=== PATIENT | male | born 1940 | race Caucasian/White ===

== ENCOUNTER 2017-01-06 15:43 | Inpatient (IN) | payer OTHER ==
[~2017-01-06] VITALS: Ht 177.8 cm; Wt 82.2 kg
[~2017-01-06 15:43] MED LIST: ADULT LOW DOSE81 M1 PO; ADVAIR 100/501 DISK IH; AMBIEN5 MG PO; Ambien PO; CITALOPRAM HBR40 MG PO; CRESTOR40 MG PO; CYTOMEL25 MCG PO; DEXILANT60 MG PO; EFFEXOR XR150 MG PO; ENDOCET 5-3251 EACH PO; FLOMAX0.4 MG PO; Flexeril PO; INCRUSE ELLI62.5 MCG IH; NIACIN250 M1 PO; NIFEDICAL XL60 MG PO; NITROQUICK0.4 MG SL; NITROSTAT0.4 MG SL; PINDOLOL5 MG PO; PREVACID30 MG PO; Procardia XL,Adalat PO; Proventil,Ventolin H IH; SPIRIVA1 INHALATI IH; SYMBICORT60 INHALAT IH; VALIUM5 MG PO; VENTOLIN HFA18 GM IH; ZANTAC300 MG PO; ZANTAC75 M1 PO; [UNRECOGNIZED DRUG - OTHER] PO
[2017-01-06 16:18] LABS: HEMATOCRIT 47.2 % (38.0-50.0); MCH 31.1 PG (29.0-34.0); MCHC 34.7 G/DL (30.0-36.0); MCV 89.4 FL (86-99); PLATELET COUNT 161 K/uL (156-360); RBC DIS.WIDTH-SD 42.4 % (39-53); RED BLOOD COUNT 5.28 M/uL (4.00-5.50); WHITE BLOOD COUNT 9.4 K/uL (4.1-10.2)
[2017-01-06 16:27] LABS: CHLORIDE 100 mEq/L (99-109); SODIUM 136 mEq/L (136-147)
[2017-01-06 16:29] LABS: GLUCOSE 146 mg/dL (70-99)
[2017-01-06 16:30] LABS: ANION GAP 10 MEQ/L (2-14)
[2017-01-06 16:33] LABS: GFR ESTIMATE (CALCULATED) > 59 mL/min/; UREA NITROGEN (BUN) 15 mg/dL (9-23)
[2017-01-06] MEDS ORDERED: VALIUM5 MG PO (16:33)
[2017-01-06 16:39] LABS: TROP-I INTERPRETATION NEGATIVE; TROPONIN-I < 0.01 ng/mL (0.0-0.30)
[2017-01-06] MEDS ORDERED: LO-DOSE ASPIRIN81 M2 PO (17:19)
[2017-01-06] MEDS ORDERED: FUROSEMIDE40 MG PO (17:22)
[2017-01-06] MEDS ORDERED: PROAIR HFA8.5 GM IH (17:22)
[2017-01-06] MEDS ORDERED: SPIRIVA1 INHALATI IH (17:24)
[2017-01-06] MEDS ORDERED: REFRESH EYE DR1 EACH BOTH EYES (17:24)
[2017-01-06 17:48] LABS: HDL CHOLESTEROL 60 MG/DL (Desirable>=40); LDL CHOLESTEROL 159 mg/dL (Desirable<100); NON-HDL CHOLESTEROL 181 mg/dL (Desirable<160); TOTAL CHOLESTEROL 241 mg/dL (Desirable<200); TRIGLYCERIDES 111 MG/DL (Normal: <150)
[2017-01-06] MEDS ORDERED: NIFEDIPINE ER30 MG PO (17:59)
[2017-01-06 18:30] VITALS: BP 152/78
[2017-01-06 22:42] LABS: EOSINOPHIL (%) 0.1 % (0-5); HEMATOCRIT 44.2 % (38.0-50.0); IMMATURE GRANULOCYTE (%) 0.5 % (0.0-0.7); IMMATURE GRANULOCYTE COUNT 0.1 K/uL; INSTRUMENT ABS NEUTROPHIL CT 8.6 K/uL; LYMPHOCYTE COUNT 0.4 K/uL (1.0-2.8); MCH 31.1 PG (29.0-34.0); MCHC 34.8 G/DL (30.0-36.0); MCV 89.3 FL (86-99); MEAN PLAT.VOLUME 9.9 uM^3 (9.0-12.4); MONOCYTE (%) 4.1 % (3-12); MONOCYTE COUNT 0.4 K/uL (0-0.8); NEUTROPHIL (%) 91.5 % (45-76); NEUTROPHIL COUNT 8.6 K/uL (1.8-6.4); PLATELET COUNT 149 K/uL (156-360); RBC DIS.WIDTH-CV 13.2 % (11.8-14.6); RBC DIS.WIDTH-SD 43.2 % (39-53); RED BLOOD COUNT 4.95 M/uL (4.00-5.50); WHITE BLOOD COUNT 9.4 K/uL (4.1-10.2)
[2017-01-06 22:54] LABS: CHLORIDE 101 mEq/L (99-109); SODIUM 135 mEq/L (136-147)
[2017-01-06 22:55] LABS: MAGNESIUM 1.6 mg/dL (1.3-2.7)
[2017-01-06 22:57] LABS: GLUCOSE 128 mg/dL (70-99)
[2017-01-06 22:58] LABS: ANION GAP 12 MEQ/L (2-14); TOTAL BILIRUBIN 2.7 mg/dL (0.0-1.0)
[2017-01-06 23:00] LABS: ALKALINE PHOSPHATASE 167 IU/L (3-129); GFR ESTIMATE (CALCULATED) 57 mL/min/
[2017-01-06 23:01] LABS: UREA NITROGEN (BUN) 16 mg/dL (9-23)
[2017-01-06 23:06] LABS: TROP-I INTERPRETATION NEGATIVE; TROPONIN-I < 0.01 ng/mL (0.0-0.30)
[2017-01-07] VITALS (7 sets, daily range): BP systolic 99–144; BP diastolic 54–70
[2017-01-07 01:29] LABS: LIPASE 28 U/L (1.0-51.0)
[2017-01-07 01:31] LABS: BASE EXCESS 3.5 mEq/L (-3 to +3); BICARBONATE 27.8 mEq/L (22-26); CARBOXY HGB 2.1 % (0-5); COMMENTS - BLOOD GASES C+A+; DEVICE NC; METHEMOGLOBIN 1.7 % (0-1.5); O2 FLOW 2 L/MIN; PCO2 40 mm Hg (35-45); PO2 52 mm Hg (80-100); SITE RR; pH 7.45 (7.35-7.45)
[2017-01-07 02:58] LABS: ADD MIUA? NO; BILIRUBIN NEGATIVE; BLOOD NEGATIVE; COLOR AMBER ((YELLOW)); GLUCOSE (STRIP) NEGATIVE; KETONES NEGATIVE; LEUKOCYTES NEGATIVE; NITRITE NEGATIVE; PROTEIN (STRIP) NEGATIVE; UCUL ADDED? NO
[2017-01-07 03:10] LABS: SPECIFIC GRAVITY 1.072 (1.000-1.030)
[2017-01-07 04:57] LABS: EOSINOPHIL (%) 0 % (0-5); IMMATURE GRANULOCYTE (%) 0.4 % (0.0-0.7); INSTRUMENT ABS NEUTROPHIL CT 8.6 K/uL; LYMPHOCYTE COUNT 0.5 K/uL (1.0-2.8); MCH 31.3 PG (29.0-34.0); MCHC 34.9 G/DL (30.0-36.0); MCV 89.9 FL (86-99); MEAN PLAT.VOLUME 10.1 uM^3 (9.0-12.4); MONOCYTE (%) 6.9 % (3-12); MONOCYTE COUNT 0.7 K/uL (0-0.8); NEUTROPHIL (%) 87.5 % (45-76); NEUTROPHIL COUNT 8.6 K/uL (1.8-6.4); PLATELET COUNT 111 K/uL (156-360); RBC DIS.WIDTH-CV 13.2 % (11.8-14.6); RBC DIS.WIDTH-SD 43.5 % (39-53); RED BLOOD COUNT 4.34 M/uL (4.00-5.50); WHITE BLOOD COUNT 9.8 K/uL (4.1-10.2)
[2017-01-07 05:06] LABS: CHLORIDE 102 mEq/L (99-109); POTASSIUM 3.8 mEq/L (3.7-5.4); SODIUM 135 mEq/L (136-147)
[2017-01-07 05:08] LABS: GLUCOSE 141 mg/dL (70-99)
[2017-01-07 05:09] LABS: ANION GAP 10 MEQ/L (2-14)
[2017-01-07 05:10] LABS: TOTAL BILIRUBIN 2.8 mg/dL (0.0-1.0)
[2017-01-07 05:11] LABS: ALKALINE PHOSPHATASE 143 IU/L (3-129); GFR ESTIMATE (CALCULATED) 52 mL/min/
[2017-01-07 05:13] LABS: UREA NITROGEN (BUN) 17 mg/dL (9-23)
[2017-01-07 05:18] LABS: TROP-I INTERPRETATION NEGATIVE; TROPONIN-I < 0.01 ng/mL (0.0-0.30)
[2017-01-07 07:27] LABS: Estimated Average Glucose 117 mg/dL (70-123); HEMOGLOBIN A1c (GLYCOHEMOGLOB) 5.7 % HGB (Below 5.7)
[2017-01-07 21:48] LABS: POINT-OF-CARE METER ID UU14149397
[2017-01-08 04:27] VITALS: BP 126/71
[2017-01-08 05:38] LABS: EOSINOPHIL (%) 0 % (0-5); HEMATOCRIT 41.8 % (38.0-50.0); IMMATURE GRANULOCYTE (%) 0.8 % (0.0-0.7); IMMATURE GRANULOCYTE COUNT 0.1 K/uL; INSTRUMENT ABS NEUTROPHIL CT 9.4 K/uL; LYMPHOCYTE COUNT 0.5 K/uL (1.0-2.8); MCH 31.4 PG (29.0-34.0); MCHC 34.2 G/DL (30.0-36.0); MCV 91.7 FL (86-99); MEAN PLAT.VOLUME 10.6 uM^3 (9.0-12.4); MONOCYTE (%) 3.5 % (3-12); MONOCYTE COUNT 0.4 K/uL (0-0.8); NEUTROPHIL (%) 90.7 % (45-76); NEUTROPHIL COUNT 9.4 K/uL (1.8-6.4); PLATELET COUNT 118 K/uL (156-360); RBC DIS.WIDTH-CV 13.2 % (11.8-14.6); RBC DIS.WIDTH-SD 44.8 % (39-53); RED BLOOD COUNT 4.56 M/uL (4.00-5.50); WHITE BLOOD COUNT 10.3 K/uL (4.1-10.2)
[2017-01-08 05:52] LABS: CHLORIDE 106 mEq/L (99-109); SODIUM 140 mEq/L (136-147)
[2017-01-08 05:54] LABS: GLUCOSE 188 mg/dL (70-99)
[2017-01-08 05:56] LABS: ANION GAP 8 MEQ/L (2-14)
[2017-01-08 05:58] LABS: ALKALINE PHOSPHATASE 128 IU/L (3-129); GFR ESTIMATE (CALCULATED) 57 mL/min/
[2017-01-08 05:59] LABS: UREA NITROGEN (BUN) 21 mg/dL (9-23)
[2017-01-08 06:00] LABS: DIRECT BILIRUBIN 0.7 mg/dL (0.0-0.3)
[2017-01-08 06:23] LABS: POINT-OF-CARE METER ID UU14149397
[2017-01-08 07:58] VITALS: BP 129/76
[2017-01-08 12:01] LABS: POINT-OF-CARE METER ID UU14188577
[2017-01-08 12:08] VITALS: BP 133/92
[2017-01-08 16:55] VITALS: BP 176/86
[2017-01-08 17:19] LABS: POINT-OF-CARE METER ID UU14188577
[2017-01-08 20:27] VITALS: BP 155/82
[2017-01-09 00:02] VITALS: BP 150/80
[2017-01-09 04:08] VITALS: BP 137/77
[2017-01-09 04:54] LABS: EOSINOPHIL (%) 0 % (0-5); HEMATOCRIT 41.7 % (38.0-50.0); IMMATURE GRANULOCYTE (%) 0.9 % (0.0-0.7); IMMATURE GRANULOCYTE COUNT 0.1 K/uL; INSTRUMENT ABS NEUTROPHIL CT 10.9 K/uL; LYMPHOCYTE COUNT 0.6 K/uL (1.0-2.8); MCHC 34.3 G/DL (30.0-36.0); MCV 90.5 FL (86-99); MEAN PLAT.VOLUME 10.6 uM^3 (9.0-12.4); MONOCYTE (%) 2.6 % (3-12); MONOCYTE COUNT 0.3 K/uL (0-0.8); NEUTROPHIL (%) 91.4 % (45-76); NEUTROPHIL COUNT 10.9 K/uL (1.8-6.4); PLATELET COUNT 149 K/uL (156-360); RBC DIS.WIDTH-CV 13.2 % (11.8-14.6); RBC DIS.WIDTH-SD 43.9 % (39-53); RED BLOOD COUNT 4.61 M/uL (4.00-5.50)
[2017-01-09 05:06] LABS: CHLORIDE 104 mEq/L (99-109); POTASSIUM 3.9 mEq/L (3.7-5.4); SODIUM 138 mEq/L (136-147)
[2017-01-09 05:08] LABS: GLUCOSE 150 mg/dL (70-99)
[2017-01-09 05:10] LABS: ANION GAP 7 MEQ/L (2-14)
[2017-01-09 05:12] LABS: ALKALINE PHOSPHATASE 125 IU/L (3-129); GFR ESTIMATE (CALCULATED) > 59 mL/min/
[2017-01-09 05:13] LABS: UREA NITROGEN (BUN) 23 mg/dL (9-23)
[2017-01-09 05:17] LABS: DIRECT BILIRUBIN 0.2 mg/dL (0.0-0.3); TOTAL BILIRUBIN 0.6 mg/dL (0.0-1.0)
[2017-01-09 06:48] LABS: POINT-OF-CARE METER ID UU14149397
[2017-01-09 08:05] VITALS: BP 169/81
[2017-01-09 14:37] VITALS: BP 144/80
[2017-01-09 16:36] VITALS: BP 148/70
[2017-01-09 19:40] VITALS: BP 103/58
[2017-01-09 21:36] LABS: POINT-OF-CARE METER ID UU14149397
[2017-01-10 00:10] VITALS: BP 105/57
[2017-01-10 04:46] VITALS: BP 116/67
[2017-01-10 06:22] LABS: EOSINOPHIL (%) 0 % (0-5); HEMATOCRIT 41.3 % (38.0-50.0); IMMATURE GRANULOCYTE (%) 1.2 % (0.0-0.7); IMMATURE GRANULOCYTE COUNT 0.1 K/uL; INSTRUMENT ABS NEUTROPHIL CT 8.1 K/uL; LYMPHOCYTE COUNT 0.6 K/uL (1.0-2.8); MCH 31.2 PG (29.0-34.0); MCHC 33.9 G/DL (30.0-36.0); MEAN PLAT.VOLUME 10.7 uM^3 (9.0-12.4); MONOCYTE (%) 3.4 % (3-12); MONOCYTE COUNT 0.3 K/uL (0-0.8); NEUTROPHIL (%) 88.6 % (45-76); NEUTROPHIL COUNT 8.1 K/uL (1.8-6.4); PLATELET COUNT 146 K/uL (156-360); RBC DIS.WIDTH-CV 13.2 % (11.8-14.6); RBC DIS.WIDTH-SD 44.5 % (39-53); RED BLOOD COUNT 4.49 M/uL (4.00-5.50); WHITE BLOOD COUNT 9.2 K/uL (4.1-10.2)
[2017-01-10 06:33] LABS: POINT-OF-CARE METER ID UU14188577
[2017-01-10 06:50] LABS: ALKALINE PHOSPHATASE 101 IU/L (3-129); ANION GAP 9 MEQ/L (2-14); CHLORIDE 103 MEQ/L (99-109); DIRECT BILIRUBIN 0.2 mg/dL (0.0-0.3); GFR ESTIMATE (CALCULATED) > 59 mL/min/; GLUCOSE 131 mg/dL (70-99); POTASSIUM 3.5 MEQ/L (3.7-5.4); SAMPLE HEMOLYSIS CHECK 0; SAMPLE ICTERIC CHECK 0; SAMPLE LIPEMIA CHECK 0; SODIUM 140 MEQ/L (136-147); TOTAL BILIRUBIN 0.5 MG/DL (0.0-1.0); UREA NITROGEN (BUN) 23 mg/dL (9-23)
[2017-01-10 07:59] VITALS: BP 155/75
[2017-01-10 12:02] VITALS: BP 172/82
[2017-01-10] MEDS ORDERED: CIPRO500 MG PO (12:12)
[2017-01-10] MEDS ORDERED: FOLIC ACID1 MG PO (12:12)
[2017-01-10] MEDS ORDERED: Thiamine,Vitamin B1 PO (12:12)
[2017-01-10 12:33] LABS: POINT-OF-CARE METER ID UU14188577
[2017-01-10 13:16] LABS: POINT-OF-CARE METER ID UU14188577
== END 2017-01-10 14:22 | disposition home or self-care (01) | DRG 871 ==
LOC: EME 15:43 → EDOF 17:10 → 5WEST 18:17 → 3EAST 01-07 01:28 → 5WEST 01-07 01:28 → 3EAST 01-07 02:50
PROVIDERS: Hospitalist; Internal Medicine; Physician Assistant Medical
PROC: 0FC98ZZ Extirpation of Matter from Common Bile Duct, Via Natural or Artificial Opening Endoscopic (ICD-10-PCS; principal; 2017-01-09)
DX: A41.9 Sepsis, unspecified organism (principal); J96.21 Acute and chronic respiratory failure with hypoxia; K80.50 Calculus of bile duct without cholangitis or cholecystitis without obstruction; N17.9 Acute kidney failure, unspecified; J44.0 Chronic obstructive pulmonary disease with (acute) lower respiratory infection; I47.2 Ventricular tachycardia; J84.10 Pulmonary fibrosis, unspecified; I25.10 Atherosclerotic heart disease of native coronary artery without angina pectoris; I10 Essential (primary) hypertension; G47.00 Insomnia, unspecified; F41.9 Anxiety disorder, unspecified; J20.9 Acute bronchitis, unspecified; J44.1 Chronic obstructive pulmonary disease with (acute) exacerbation; I12.9 Hypertensive chronic kidney disease with stage 1 through stage 4 chronic kidney disease, or unspecified chronic kidney disease; E78.5 Hyperlipidemia, unspecified; R73.9 Hyperglycemia, unspecified; K76.0 Fatty (change of) liver, not elsewhere classified; F10.10 Alcohol abuse, uncomplicated; B96.1 Klebsiella pneumoniae [K. pneumoniae] as the cause of diseases classified elsewhere; N40.0 Benign prostatic hyperplasia without lower urinary tract symptoms; N18.3 Chronic kidney disease, stage 3 (moderate); F32.9 Major depressive disorder, single episode, unspecified; Z99.81 Dependence on supplemental oxygen; Z95.2 Presence of prosthetic heart valve; Z90.49 Acquired absence of other specified parts of digestive tract; Z95.5 Presence of coronary angioplasty implant and graft
CPT/HCPCS: 36600; 71020; 71275; 74177; 74181; 74330; 76705; 80048; 80053; 80061; 80076; 81003; 82248; 82803; 82948; 83036; 83605; 83690; 83735; 84484; 85025; 85027; 87040; 87077; 87081; 87186; 87801; 93005; 94640; 94640 76; 94799; 99202; 99281; 99285; C1757; C1769; G0378; J0330; J0456; J0696; J1650; J1815; J2250; J2405; J2930; J3010; J7030; J7050; J7120

== ENCOUNTER 2017-08-20 21:13 | Emergency (ER) | payer OTHER ==
[~2017-08-20] VITALS: Ht 177.8 cm; Wt 92.0 kg
[~2017-08-20 21:13] MED LIST changes: +CIPRO500 MG PO; +FOLIC ACID1 MG PO; +FUROSEMIDE40 MG PO; +LO-DOSE ASPIRIN81 M2 PO; +NIFEDIPINE ER30 MG PO; +PROAIR HFA8.5 GM IH; +REFRESH EYE DR1 EACH BOTH EYES; +Thiamine,Vitamin B1 PO
[2017-08-20 21:42] LABS: HEMATOCRIT 44.3 % (38.0-50.0); MCHC 34.3 G/DL (30.0-36.0); MCV 90.4 FL (86-99); MEAN PLAT.VOLUME 10.2 uM^3 (9.0-12.4); PLATELET COUNT 143 K/uL (156-360); RBC DIS.WIDTH-CV 13.1 % (11.8-14.6); RBC DIS.WIDTH-SD 42.6 % (39-53); WHITE BLOOD COUNT 8.1 K/uL (4.1-10.2)
[2017-08-20 22:00] LABS: CHLORIDE 105 mEq/L (99-109); POTASSIUM 4.7 mEq/L (3.7-5.4); SODIUM 137 mEq/L (136-147)
[2017-08-20 22:02] LABS: GLUCOSE 157 mg/dL (70-99)
[2017-08-20 22:03] LABS: ANION GAP 8 MEQ/L (2-14)
[2017-08-20 22:06] LABS: GFR ESTIMATE (CALCULATED) 52 mL/min/ (58.99-99999)
[2017-08-20 22:07] LABS: UREA NITROGEN (BUN) 20 mg/dL (9-23)
[2017-08-20 22:08] LABS: TROP-I INTERPRETATION NEGATIVE; TROPONIN-I < 0.01 ng/mL (0.0-0.30)
[2017-08-20 22:28] LABS: MAGNESIUM 1.8 mg/dL (1.3-2.7)
[2017-08-21 01:24] LABS: TROP-I INTERPRETATION NEGATIVE; TROPONIN-I < 0.01 ng/mL (0.0-0.30)
[2017-08-21 01:39] LABS: ADD MIUA? YES; BILIRUBIN NEGATIVE; BLOOD SMALL; COLOR AMBER ((YELLOW)); GLUCOSE (STRIP) NEGATIVE; KETONES NEGATIVE; LEUKOCYTES NEGATIVE; NITRITE NEGATIVE; PROTEIN (STRIP) 100; SPECIFIC GRAVITY 1.027 (1.000-1.030)
[2017-08-21 01:54] LABS: BACTERIA NONE SEEN /HPF; EPITHELIAL CELLS NONE SEEN /HPF; HYALINE CASTS 0-5 /LPF; MUCUS TRACE /LPF; RED BLOOD CELLS 0-5 /HPF (0-5); UCUL ADDED? NO; WHITE BLOOD CELLS 0-5 /HPF (0-5)
[2017-08-21 03:31] VITALS: BP 146/80
== END 2017-08-21 03:32 | disposition home or self-care (01) ==
LOC: EME → EDBD 21:13 → EME 21:13
PROVIDERS: Emergency Medicine
DX: J44.1 Chronic obstructive pulmonary disease with (acute) exacerbation (principal); K21.9 Gastro-esophageal reflux disease without esophagitis; I10 Essential (primary) hypertension; E78.5 Hyperlipidemia, unspecified; I25.10 Atherosclerotic heart disease of native coronary artery without angina pectoris; F41.9 Anxiety disorder, unspecified; F32.9 Major depressive disorder, single episode, unspecified; Y93.01 Activity, walking, marching and hiking; Y92.512 Supermarket, store or market as the place of occurrence of the external cause; Z87.891 Personal history of nicotine dependence; Z95.5 Presence of coronary angioplasty implant and graft; Z79.82 Long term (current) use of aspirin; Z90.49 Acquired absence of other specified parts of digestive tract; Z88.8 Allergy status to other drugs, medicaments and biological substances
CPT/HCPCS: 71020; 80048; 81003; 83605; 83735; 84484; 85027; 87502; 93005; 94640; 94640 76; 99281; 99285; J7120

== ENCOUNTER 2018-02-05 13:47 | Inpatient (IN) | payer OTHER ==
[~2018-02-05] VITALS: Ht 175.3 cm; Wt 81.6 kg
[~2018-02-05 13:47] MED LIST changes: -NIFEDIPINE ER30 MG PO; +PROCARDIA XL60 MG PO
[2018-02-05 14:27] LABS: BASOPHIL (%) 0.3 % (0-1); EOSINOPHIL (%) 1.6 % (0-5); EOSINOPHIL COUNT 0.1 K/uL (0-0.3); HEMATOCRIT 44.9 % (38.0-50.0); HEMOGLOBIN 15.4 G/DL (12.5-16.6); IMMATURE GRANULOCYTE (%) 0.4 % (0.0-0.7); LYMPHOCYTE (%) 11.3 % (15-42); LYMPHOCYTE COUNT 0.8 K/uL (1.0-2.8); MCH 30.9 PG (29.0-34.0); MCHC 34.3 G/DL (30.0-36.0); MONOCYTE (%) 10.6 % (3-12); MONOCYTE COUNT 0.7 K/uL (0-0.8); NEUTROPHIL (%) 75.8 % (45-76); NEUTROPHIL COUNT 5.3 K/uL (1.8-6.4); PLATELET COUNT 121 K/uL (156-360); RBC DIS.WIDTH-CV 13.2 % (11.8-14.6); RBC DIS.WIDTH-SD 43.5 % (39-53); RED BLOOD COUNT 4.99 M/uL (4.00-5.50)
[2018-02-05 14:36] LABS: ALBUMIN 3.5 g/dL (3.2-4.8); CHLORIDE 105 mEq/L (99-109); POTASSIUM 5.2 mEq/L (3.7-5.4); SODIUM 139 mEq/L (136-147)
[2018-02-05 14:37] LABS: MAGNESIUM 1.8 mg/dL (1.3-2.7)
[2018-02-05 14:38] LABS: GLUCOSE 151 mg/dL (70-99)
[2018-02-05 14:40] LABS: TOTAL BILIRUBIN 4.4 mg/dL (0.0-1.0)
[2018-02-05 14:42] LABS: ALKALINE PHOSPHATASE 266 IU/L (3-129); CREATININE 1.2 mg/dL (0.6-1.3); GFR ESTIMATE (CALCULATED) > 59 mL/min/ (58.99-99999)
[2018-02-05 14:43] LABS: UREA NITROGEN (BUN) 22 mg/dL (9-23)
[2018-02-05 14:44] LABS: AST (GOT) 86 IU/L (2-34)
[2018-02-05 14:45] LABS: ALT (GPT) 153 IU/L (3-49)
[2018-02-05 14:48] LABS: TROP-I INTERPRETATION NEGATIVE; TROPONIN-I < 0.01 ng/mL (0.0-0.30)
[2018-02-05 15:33] LABS: LIPASE 293 U/L (1.0-51.0)
[2018-02-05] MEDS ORDERED: TAMSULOSIN HCL0.4 MG PO (17:15)
[2018-02-05] MEDS ORDERED: ROSUVASTATIN CA40 MG PO (17:15)
[2018-02-05] MEDS ORDERED: DIAZEPAM5 MG PO (17:17)
[2018-02-05] MEDS ORDERED: ZOLPIDEM TARTRA10 MG PO (17:18)
[2018-02-05] MEDS ORDERED: INCRUSE ELLI62.5 MCG IH (17:19)
[2018-02-05] MEDS ORDERED: NITROGLYCERIN0.4 MG SL (17:22)
[2018-02-05] MEDS ORDERED: VENTOLIN HFA18 GM IH (17:22)
[2018-02-05] MEDS ORDERED: ALEVE220 MG PO (17:34)
[2018-02-05] MEDS ORDERED: ZANTAC150 MG PO (17:36)
[2018-02-05 21:27] LABS: APPEARANCE CLEAR ((CLEAR)); BILIRUBIN NEGATIVE; BLOOD NEGATIVE; COLOR AMBER ((YELLOW)); GLUCOSE (STRIP) NEGATIVE; KETONES NEGATIVE; LEUKOCYTES NEGATIVE; NITRITE NEGATIVE; PROTEIN (STRIP) NEGATIVE; UCUL ADDED? NO
[2018-02-05 21:47] LABS: SPECIFIC GRAVITY > 1.060 (1.000-1.030)
[2018-02-05 22:26] VITALS: BP 147/80
[2018-02-06 00:16] VITALS: BP 146/80
[2018-02-06 05:44] LABS: BASOPHIL (%) 0.2 % (0-1); EOSINOPHIL (%) 0 % (0-5); HEMATOCRIT 42.3 % (38.0-50.0); HEMOGLOBIN 14.3 G/DL (12.5-16.6); IMMATURE GRANULOCYTE (%) 0.3 % (0.0-0.7); LYMPHOCYTE (%) 2.1 % (15-42); LYMPHOCYTE COUNT 0.4 K/uL (1.0-2.8); MCH 30.8 PG (29.0-34.0); MCHC 33.8 G/DL (30.0-36.0); MCV 91.2 FL (86-99); MONOCYTE (%) 10.3 % (3-12); MONOCYTE COUNT 1.8 K/uL (0-0.8); NEUTROPHIL (%) 87.1 % (45-76); PLATELET COUNT 113 K/uL (156-360); RBC DIS.WIDTH-CV 14.1 % (11.8-14.6); RBC DIS.WIDTH-SD 46.6 % (39-53); RED BLOOD COUNT 4.64 M/uL (4.00-5.50); WHITE BLOOD COUNT 17.2 K/uL (4.1-10.2)
[2018-02-06 06:13] LABS: ALBUMIN 3.5 G/DL (3.2-4.8); ALKALINE PHOSPHATASE 280 IU/L (3-129); ALT (GPT) 131 IU/L (3-49); AST (GOT) 91 IU/L (2-34); CHLORIDE 104 MEQ/L (99-109); CREATININE 1.6 MG/DL (0.6-1.3); GFR ESTIMATE (CALCULATED) 45 mL/min/ (58.99-99999); GLUCOSE 144 mg/dL (70-99); POTASSIUM 4.2 MEQ/L (3.7-5.4); SODIUM 137 MEQ/L (136-147); TOTAL BILIRUBIN 7.8 MG/DL (0.0-1.0); TOTAL PROTEIN 5.3 G/DL (6.4-8.3); UREA NITROGEN (BUN) 28 mg/dL (9-23)
[2018-02-06 07:22] VITALS: BP 112/65
[2018-02-06 15:50] VITALS: BP 113/65
[2018-02-06 22:50] VITALS: BP 134/63
[2018-02-07 05:33] LABS: HEMOGLOBIN 13.4 G/DL (12.5-16.6); MCHC 32.7 G/DL (30.0-36.0); MCV 91.7 FL (86-99); PLATELET COUNT 84 K/uL (156-360); RBC DIS.WIDTH-CV 14.4 % (11.8-14.6); RBC DIS.WIDTH-SD 48.4 % (39-53); RED BLOOD COUNT 4.47 M/uL (4.00-5.50); WHITE BLOOD COUNT 8.8 K/uL (4.1-10.2)
[2018-02-07 06:14] LABS: ALBUMIN 2.9 G/DL (3.2-4.8); ALKALINE PHOSPHATASE 297 IU/L (3-129); ALT (GPT) 122 IU/L (3-49); AST (GOT) 108 IU/L (2-34); CHLORIDE 107 MEQ/L (99-109); CREATININE 1.2 MG/DL (0.6-1.3); GFR ESTIMATE (CALCULATED) > 59 mL/min/ (58.99-99999); POTASSIUM 4.2 MEQ/L (3.7-5.4); SODIUM 138 MEQ/L (136-147); TOTAL BILIRUBIN 8.4 MG/DL (0.0-1.0); TOTAL PROTEIN 4.7 G/DL (6.4-8.3); UREA NITROGEN (BUN) 29 mg/dL (9-23)
[2018-02-07 06:16] LABS: GLUCOSE 96 mg/dL (70-99)
[2018-02-07 07:15] VITALS: BP 158/73
[2018-02-07 08:11] LABS: LIPASE 54 U/L (1.0-51.0)
[2018-02-07 15:20] VITALS: BP 178/82
[2018-02-08] VITALS (9 sets, daily range): BP systolic 133–201; BP diastolic 69–95
[2018-02-08 05:50] LABS: HEMATOCRIT 38.4 % (38.0-50.0); HEMOGLOBIN 12.9 G/DL (12.5-16.6); MCH 30.3 PG (29.0-34.0); MCHC 33.6 G/DL (30.0-36.0); MCV 90.1 FL (86-99); PLATELET COUNT 71 K/uL (156-360); RBC DIS.WIDTH-CV 14.1 % (11.8-14.6); RBC DIS.WIDTH-SD 46.9 % (39-53); RED BLOOD COUNT 4.26 M/uL (4.00-5.50); WHITE BLOOD COUNT 6.4 K/uL (4.1-10.2)
[2018-02-08 06:28] LABS: ALBUMIN 2.7 G/DL (3.2-4.8); ALT (GPT) 136 IU/L (3-49); AST (GOT) 116 IU/L (2-34); CHLORIDE 105 MEQ/L (99-109); CREATININE 1.2 MG/DL (0.6-1.3); GFR ESTIMATE (CALCULATED) > 59 mL/min/ (58.99-99999); GLUCOSE 95 mg/dL (70-99); POTASSIUM 3.9 MEQ/L (3.7-5.4); SODIUM 139 MEQ/L (136-147); TOTAL BILIRUBIN 8.3 MG/DL (0.0-1.0); TOTAL PROTEIN 4.7 G/DL (6.4-8.3); UREA NITROGEN (BUN) 20 mg/dL (9-23)
[2018-02-08 06:29] LABS: ALKALINE PHOSPHATASE 384 IU/L (3-129)
[2018-02-08 16:48] LABS: INTER. NORMALIZED RATIO 1.1
[2018-02-09 00:49] VITALS: BP 123/75
[2018-02-09 06:18] LABS: HEMOGLOBIN 12.3 G/DL (12.5-16.6); MCH 30.5 PG (29.0-34.0); MCHC 34.2 G/DL (30.0-36.0); MCV 89.3 FL (86-99); RBC DIS.WIDTH-CV 14.1 % (11.8-14.6); RBC DIS.WIDTH-SD 45.8 % (39-53); RED BLOOD COUNT 4.03 M/uL (4.00-5.50); WHITE BLOOD COUNT 6.8 K/uL (4.1-10.2)
[2018-02-09 06:20] LABS: PLATELET COUNT 127 K/uL (156-360)
[2018-02-09 06:50] LABS: ALKALINE PHOSPHATASE 422 IU/L (3-129); ALT (GPT) 92 IU/L (3-49); CHLORIDE 102 MEQ/L (99-109); CREATININE 1.2 MG/DL (0.6-1.3); GFR ESTIMATE (CALCULATED) > 59 mL/min/ (58.99-99999); GLUCOSE 94 mg/dL (70-99); POTASSIUM 3.9 MEQ/L (3.7-5.4); SODIUM 138 MEQ/L (136-147); TOTAL PROTEIN 4.9 G/DL (6.4-8.3); UREA NITROGEN (BUN) 21 mg/dL (9-23)
[2018-02-09 06:51] LABS: AST (GOT) 49 IU/L (2-34); TOTAL BILIRUBIN 6.2 MG/DL (0.0-1.0)
[2018-02-09 07:17] VITALS: BP 125/71
[2018-02-09 15:35] VITALS: BP 117/66
[2018-02-09 23:45] VITALS: BP 133/65
[2018-02-10 06:16] LABS: ALKALINE PHOSPHATASE 363 IU/L (3-129); ALT (GPT) 68 IU/L (3-49); AST (GOT) 28 IU/L (2-34); TOTAL PROTEIN 5.1 G/DL (6.4-8.3)
[2018-02-10 06:17] LABS: TOTAL BILIRUBIN 3.3 MG/DL (0.0-1.0)
[2018-02-10 08:00] VITALS: BP 164/70
[2018-02-10] MEDS ORDERED: CIPRO500 MG PO (10:14)
[2018-02-10] MEDS ORDERED: AMOXICILLIN500 MG PO (10:14)
[2018-02-10 15:32] LABS: Heparin Induced Plt Ab Negative (Negative)
[2018-02-13 08:16] LABS: UFH SRA Result Negative (Negative)
== END 2018-02-10 13:29 | disposition home or self-care (01) | DRG 444 ==
LOC: EME 13:47 → EDOF 20:04 → 5SOUTH 20:04 → ENRESERV 20:05 → 5SOUTH 21:24
PROVIDERS: Emergency Medicine; Internal Medicine; Internal Medicine Gastroenterology
PROC: 0FC98ZZ Extirpation of Matter from Common Bile Duct, Via Natural or Artificial Opening Endoscopic (ICD-10-PCS; principal; 2018-02-06)
PROC: 0FC98ZZ Extirpation of Matter from Common Bile Duct, Via Natural or Artificial Opening Endoscopic (ICD-10-PCS; 2018-02-08)
PROC: 30233R1 Transfusion of Nonautologous Platelets into Peripheral Vein, Percutaneous Approach (ICD-10-PCS; 2018-02-08)
PROC: 0F798DZ Dilation of Common Bile Duct with Intraluminal Device, Via Natural or Artificial Opening Endoscopic (ICD-10-PCS; 2018-02-08)
DX: K80.31 Calculus of bile duct with cholangitis, unspecified, with obstruction (principal); K85.90 Acute pancreatitis without necrosis or infection, unspecified; Z99.81 Dependence on supplemental oxygen; I25.10 Atherosclerotic heart disease of native coronary artery without angina pectoris; E78.5 Hyperlipidemia, unspecified; K21.9 Gastro-esophageal reflux disease without esophagitis; I12.9 Hypertensive chronic kidney disease with stage 1 through stage 4 chronic kidney disease, or unspecified chronic kidney disease; F32.9 Major depressive disorder, single episode, unspecified; F41.9 Anxiety disorder, unspecified; Z87.891 Personal history of nicotine dependence; J96.10 Chronic respiratory failure, unspecified whether with hypoxia or hypercapnia; J44.9 Chronic obstructive pulmonary disease, unspecified; N40.0 Benign prostatic hyperplasia without lower urinary tract symptoms; Z90.49 Acquired absence of other specified parts of digestive tract; N17.9 Acute kidney failure, unspecified; R78.81 Bacteremia; B96.1 Klebsiella pneumoniae [K. pneumoniae] as the cause of diseases classified elsewhere; D69.6 Thrombocytopenia, unspecified; N18.3 Chronic kidney disease, stage 3 (moderate); Z91.5 Personal history of self-harm; Z95.5 Presence of coronary angioplasty implant and graft; E66.9 Obesity, unspecified; Z68.26 Body mass index [BMI] 26.0-26.9, adult
CPT/HCPCS: 71045; 74021; 74176; 74177; 74328; 80053; 80076; 81003; 83605; 83690; 83735; 83880; 84484; 85025; 85027; 85610; 86022 90; 86850; 86900; 86901; 87040; 87077; 87081; 87186; 87801; 93005; 94640; 94640 76; 94799; 99202; 99281; 99285; C1757; J0290; J0330; J0360; J0696; J1170; J1644; J1885; J2270; J2405; J3010; J3411; J7030; J7050; J7070; P9035; S0028

== ENCOUNTER → 2018-04-19 | Outpatient (CLI) | payer OTHER ==
[~2018-04-19] VITALS: Ht 177.8 cm; Wt 81.7 kg
[~2018-04-19] MED LIST changes: +ALEVE220 MG PO; +AMOXICILLIN500 MG PO; +DIAZEPAM5 MG PO; +LASIX40 MG PO; +NITROGLYCERIN0.4 MG SL; +ROSUVASTATIN CA40 MG PO; +TAMSULOSIN HCL0.4 MG PO; +ZANTAC150 MG PO; +ZOLPIDEM TARTRA10 MG PO
== END | disposition home or self-care (01) ==
LOC: AMB 11:22
PROC: 0FJD8ZZ Inspection of Pancreatic Duct, Via Natural or Artificial Opening Endoscopic (ICD-10-PCS; principal; 2018-04-19)
DX: K83.1 Obstruction of bile duct (principal); T85.520A Displacement of bile duct prosthesis, initial encounter
CPT/HCPCS: 74018; 74328; 87081; C1757; J0330; J3010